=== PATIENT | female | born 1960 | race Caucasian/White ===

== ENCOUNTER → 2016-05-25 | Outpatient (CLI) | payer OTHER ==
--- NOTE | 2016-05-25 15:38 | DI ---
MRI LUMBAR SPINE W/O CN,05/25/2016 12:24 PM: Clinical History: Lumbosacral pain with radiculopathy. Previous Exam: None at this facility. Findings: Multiplanar MR images are obtained through the lumbar spine without contrast. There is grade 1 anterolisthesis of L4 on L5. Vertebral body height is preserved. The cord descends normally with normal course and a normal conus at the L1 level. Paraspinal musculature is unremarkable. Visualized portions of the kidneys are also unremarkable. Individual intervertebral disc spaces: L1/2: There is some mild disc desiccation and annular fissuring and a broad-based disc bulge without significant stenosis. L2/3: No significant stenosis. L3/4: No significant stenosis. L4/5: There is grade 1 anterolisthesis with some disc desiccation, annular fissuring and a broad-base d disc bulge with an extruded component superiorly within the left foraminal zone which extends 7 mm superiorly within the foraminal zone. This is Contributing to left severe neuroforaminal stenosis. Th ere is moderate right neuroforaminal narrowing. There is some facet and ligamentum flavum hypertrophy as well. L5/S1: No significant stenosis. Impression: Grade 1 anterolisthesis of L4 and L5 with an extruded disc fragment within the left foraminal zone wh ich extend superiorly 7 mm and causes severe left neural foraminal narrowing.
== END ==
LOC: MRI 12:19
PROVIDERS: ATTEND Physician Assistant
DX: M47.27 Other spondylosis with radiculopathy, lumbosacral region (principal); M51.36 Other intervertebral disc degeneration, lumbar region
CPT/HCPCS: 72148

== ENCOUNTER → 2016-05-25 | Outpatient (CLI) | payer OTHER ==
--- NOTE | 2016-05-25 12:56 | DI ---
XR L-SPINE MIN 4 VW,05/25/2016 10:34 AM: Clinical History: Lumbosacral back pain with radiculopathy. Previous Exam: None available. Findings: AP, lateral, flexion and extension views of the lumbar spine are obtained demonstrating 8 mm of anter olisthesis of L4 on L5. There is no instability on flexion or extension. There is mild dextroscoliosis of the lumbar spine ce ntered at the L3 level. There are no pathologic calcifications seen. A nonobstructive bowel gas pattern is seen. Impression: 1. 8 mm of anterolisthesis of L4 on L5 unchanged on flexion and extension. 2. Mild dextroscoliosis of the lumbar spine centered at the L3 level.
--- NOTE | 2016-05-25 12:57 | DI ---
XR HIP COMPLETE MIN 2VW U/L,05/25/2016 10:34 AM: Clinical History: Left hip pain Previous Exam: None at this facility. Findings: AP view of the pelvis, AP view of the left hip and cross table lateral view of the left hip are obtai jojo, and demonstrate anatomic alignment without fractures. There is some artifact noted overlying the crosstable view. A few phleboliths are seen. A nonobstructive bowel gas pattern is noted. Impression: Normal left hip.
== END ==
LOC: ORTHO 10:37
PROVIDERS: ATTEND Physician Assistant
DX: M25.552 Pain in left hip (principal); M70.62 Trochanteric bursitis, left hip; M47.27 Other spondylosis with radiculopathy, lumbosacral region; W00.0XXA Fall on same level due to ice and snow, initial encounter
CPT/HCPCS: 72110; 73502